=== PATIENT | female | born 1985 | race American Indian/Alaskan Native ===

== ENCOUNTER 2018-12-01 13:34 | Outpatient (CLI) | payer MEDICAID | END 2018-12-01 13:35 | disposition home or self-care (01) | LOC: RAD 13:34 ==

== ENCOUNTER 2018-12-21 07:42 | Outpatient (CLI) | payer MEDICAID | END 2018-12-21 07:43 | disposition home or self-care (01) | LOC: RAD 07:42 | DX: N63.0 Unspecified lump in unspecified breast (principal) ==